=== PATIENT | female | born 1995 | race American Indian/Alaskan Native ===

== ENCOUNTER 2017-02-28 22:35 | Emergency (ER) | payer MEDICAID ==
[2017-02-28 22:53] VITALS: BP 109/69
[2017-02-28 23:22] LABS: Basophils % (Auto) 0.2 % (0.0-1.8); Eosinophils % (Auto) 1.7 % (0.0-4.3); Hematocrit 35.4 % (30.3-42.9); Hemoglobin 11.5 gm/dl (10.1-14.3); Mean Corpuscular HGB Conc 33 % (30-34); Mean Corpuscular Hemoglobin 27 pg (28-32); Mean Corpuscular Volume 81 fl (79-97); Platelet Count 202 K/mm3 (140-440); Red Blood Count 4.35 M/mm3 (3.65-5.03); Red Cell Distribution Width 15.1 % (13.2-15.2)
[2017-02-28 23:41] LABS: Anion Gap 19 mmol/L; BUN/Creatinine Ratio 14; Blood Urea Nitrogen 7 mg/dL (7-17); Calcium 8.9 mg/dL (8.4-10.2); Carbon Dioxide 21 mmol/L (22-30); Chloride 99.7 mmol/L (98-107); Glucose 96 mg/dL (65-100); Potassium 3.8 mmol/L (3.6-5.0); Sodium 136 mmol/L (137-145)
[2017-03-01 03:59] LABS: Bilirubin,Urine NEG (Negative); Blood,Urine NEG (Negative); Ketones,Urine 20 mg/dL (Negative); Leukocyte Esterase,Urine NEG (Negative); Mucus,Urine 2+ /HPF; Nitrite,Urine NEG (Negative); Protein,Urine <15 mg/dL mg/dL (Negative); Urobilinogen,Urine < 2.0 mg/dL (<2.0)
== END 2017-03-01 05:15 | disposition left against medical advice (07) ==
LOC: ED 22:35
DX: R51 Headache (principal); Z53.21 Procedure and treatment not carried out due to patient leaving prior to being seen by health care provider
CPT/HCPCS: 36415; 80048; 81001; 85025

== ENCOUNTER 2017-08-11 05:12 | Inpatient (IN) | payer MEDICAID ==
[2017-08-11] MEDS ORDERED: LACTATED RINGERS 2,000 ML ONE (05:18)
[2017-08-11] MEDS: LACTATED RINGERS 1,000 ML IV SCH ×3 (05:35→06:56)
[2017-08-11] MEDS ORDERED: PEPCID IV ONE (05:47)
[2017-08-11] MEDS ORDERED: BICITRA PO ONE (05:47)
[2017-08-11] MEDS ORDERED: REGLAN IV ONE (05:47)
[2017-08-11] MEDS ORDERED: PITOCin/NS 20 UNIT/1000ML DRIP 20 UNITS/1,000 ML BAG IV SCH ×2 (06:00→11:00)
[2017-08-11] MEDS ORDERED: ANCEF/STERILE WATER 2 GM/20 ML 2 GM/20 ML SYRINGE IV NR (06:00)
[2017-08-11 06:29] LABS: Basophils % (Auto) 0.4 % (0.0-1.8); Eosinophils # (Auto) 0.3 K/mm3 (0.0-0.4); Eosinophils % (Auto) 2.5 % (0.0-4.3); Hematocrit 35.3 % (30.3-42.9); Hemoglobin 11.8 gm/dl (10.1-14.3); Lymphocytes # (Auto) 2.7 K/mm3 (1.2-5.4); Lymphocytes % (Auto) 23.3 % (13.4-35.0); Mean Corpuscular HGB Conc 34 % (30-34); Mean Corpuscular Hemoglobin 27 pg (28-32); Mean Corpuscular Volume 80 fl (79-97); Monocytes % (Auto) 8.9 % (0.0-7.3); Red Cell Distribution Width 15.5 % (13.2-15.2)
[2017-08-11 06:45] LABS: Platelet Count 199 K/mm3 (140-440)
[2017-08-11] MEDS ORDERED: EMLA TP PRN (07:13)
--- NOTE | 2017-08-11 07:13 | History and Physical Report ---
History of Present Illness Date of examination: 08/11/17 Date of admission: 08/11/17 05:12 Chief complaint: Third repeat History of present illness: 21-year-old at 39 weeks presents with a third repeat and tubal ligation, she is a [facility] patient. course has been unremarkable. Past History Past Medical History: no pertinent history Past Surgical History: section (x 2) [employer] History: denies: chlamydia, gonorrhea, hepatitis B, hepatitis C, herpes, HIV , syphilis Social history: single, full code. denies: smoking, alcohol abuse, prescription drug abuse, IV drug use - Obstetrical History Expected Date of Delivery: 08/18/17 Actual Gestation: 39 Week(s) 0 Day(s) : 3 Para: 2 Medications and Allergies Allergies Allergy/AdvReac Type Severity Reaction Status Date / Time No Known Allergies Allergy Verified 03/06/13 11:21 Home Medications Medication Instructions Recorded Confirmed Last Taken Type Pnv No.95/Ferrous Fum/Folic AC 1 tab PO QDAY 08/11/17 08/11/17 2 Weeks Ago History [ Vitamins Tablet] ~07/28/17 Active Meds: Active Medications Cefazolin Sodium (Ancef/Sterile Water 2 Gm/20 Ml) 2 gm in 20 mls @ 80 mls/hr IV PREOP NR; Protocol Stop: 08/12/17 05:59 Lactated Ringer's (Lactated Ringers) 1,000 mls @ 2,250 mls/hr IV PREOP TRISHA Stop: 08/12/17 06:27 Last Admin: 08/11/17 06:56 Dose: 999 mls/hr Oxytocin/Sodium Chloride (Pitocin/Ns 20 Unit/1000ml Drip) 20 units in 1,000 mls @ 0 mls/hr IV TITR TRISHA Review of Systems Constitutional: no fever, no chills, no weakness, no chronic headaches Eyes: no diplopia Cardiovascular: no chest pain, no orthopnea, no palpitations, no lightheadedness , no shortness of breath, no dyspnea on exertion, no high blood pressure Respiratory: no cough, no cough with sputum, no shortness of breath, no dyspnea on exertion, no congestion Gastrointestinal: no abdominal pain, no nausea, no vomiting Genitourinary: no vaginal bleeding, no leakage of fluid, no contractions - Vital Signs Vital signs: Vital Signs Temp Resp 98.5 F 20 08/11/17 05:49 08/11/17 05:49 Temp Pulse Resp BP Pulse Ox 98.5 F 89 20 104/62 99 08/11/17 05:49 08/11/17 05:59 08/11/17 05:49 08/11/17 05:54 08/11/17 05:59 - Physical Exam Cardiovascular: Regular rate, Normal S1, Normal S2 Lungs: Positive: Clear to auscultation, Normal air movement Abdomen: Positive: normal appearance, soft. Negative: tenderness, guarding, rigidity Genitourinary (Female): Positive: normal external genitalia Uterus: Positive: enlarged (EFW ~ 3700) Adnexa: both: normal Extremities: Positive: normal Results Result Diagrams: 08/11/17 05:30 Abnormal lab results 08/11/17 Range/Units 05:30 WBC 11.6 H (4.5-11.0) K/mm3 MCH 27 L (28-32) pg RDW 15.5 H (13.2-15.2) % [place] % (Auto) 8.9 H (0.0-7.3) % [place] # 1.0 H (0.0-0.8) K/mm3 All other labs normal. Assessment and Plan A: 21-year-old at 39 weeks presents both for repeat and tubal ligation -cat 1 tracing P: -Obtain routine labs -She has been consented -Proceed to the OR once available - Patient Problems (1) 39 weeks gestation of Current Visit: Yes Status: Acute (2) History of 2 sections Current Visit: Yes Status: Acute
[2017-08-11] MEDS ORDERED: DILAUDID IV PRN (07:30)
[2017-08-11] MEDS ORDERED: PHENERGAN PO PRN (07:30)
[2017-08-11] MEDS ORDERED: BENADRYL IV PRN (07:30)
[2017-08-11] MEDS ORDERED: ZOFRAN IV PRN (07:30)
[2017-08-11] MEDS ORDERED: NARCAN 0.4 MG/1 ML IV PRN ×2 (07:30→10:23)
[2017-08-11] MEDS ORDERED: PHENERGAN PR PRN (07:30)
--- NOTE | 2017-08-11 07:30 | Anesthesia Day of Surgery ---
Anesthesia Day of Surgery - Day of Surgery Patient Examined: Yes Patient H&P Reviewed: Yes Patient is NPO: Yes
--- NOTE | 2017-08-11 07:30 | Anesthesia Consultation ---
Anesthesia Consult and Med Hx Date of service: 08/11/17 - Airway Anesthetic Teeth Evaluation: Good ROM Head & Neck: Adequate Mental/Hyoid Distance: Adequate Mallampati Class: Class II Intubation Access Assessment: Probably Good - Pre-Operative Health Status ASA Pre-Surgery Classification: ASA2 Proposed Anesthetic Plan: Epidural, Spinal - Pulmonary Hx Asthma: Yes (as ) COPD: No Hx Pneumonia: No - Cardiovascular System Hx Hypertension: No Hx Heart Attack/AMI: No Hx Valvular Heart Disease: No - Central Nervous System Hx Seizures: No CVA: No Hx Psychiatric Problems: No - Endocrine Hx Renal Disease: No Hx End Stage Renal Disease: No Hx Liver Disease: No Hx Hypothyroidism: No Hx Hyperthyroidism: No - Hematic Hx Anemia: No Hx Sickle Cell Disease: No - Other Systems Hx Alcohol Use: No Hx Substance Use: No Hx Cancer: No
[2017-08-11] MEDS ORDERED: TORADOL IV PRN (07:31)
[2017-08-11] MEDS ORDERED: SODIUM CHLORIDE FLUSH SYRINGE 10 ML IV NR ×2 (08:00→11:00)
[2017-08-11] MEDS ORDERED: NACL 0.9% IR ONE (09:05)
[2017-08-11] MEDS ORDERED: WATER FOR IRRIG STERILE IR ONE (09:05)
[2017-08-11] MEDS ORDERED: NEO SYNEPHRINE/NS Syringe(OR USE) IV ONE (09:15)
[2017-08-11] MEDS ORDERED: XYLOCAINE MPF 2% ONE ×2 (09:57)
[2017-08-11] MEDS ORDERED: MORPHINE ONE (09:57)
[2017-08-11] MEDS ORDERED: NACL 0.9% 1000 ML 1,000 ML ONE (10:04)
[2017-08-11] MEDS ORDERED: ANUCORT-HC PR PRN (10:23)
[2017-08-11] MEDS ORDERED: LANSINOH TP PRN (10:23)
[2017-08-11] MEDS ORDERED: TUCKS PAD TP PRN (10:23)
[2017-08-11] MEDS ORDERED: MYLICON PO PRN (10:23)
[2017-08-11] MEDS ORDERED: SENOKOT PO PRN (10:23)
[2017-08-11] MEDS ORDERED: TYLENOL PO PRN (10:23)
--- NOTE | 2017-08-11 10:23 | Operative Report ---
Operative Report Operative Report: DATE: 08/11/2017 PREOPERATIVE DIAGNOSIS: 21-year-old at 39 weeks, 2 prior C-sections desires repeat, desires permanent sterilization POSTOP DIAGNOSIS: As above + Dense adhesions NAME OF PROCEDURE: Repeat low transverse section Bilateral tubal ligation with Filshie clips Adhesiolysis SURGEON: REBECCA CHEN MD RF DESIGN ENGINEER: Paulina ANESTHESIA: Combined spinal epidural EBL: 800 mL PATHOLOGY SPECIMEN: None URINE OUTPUT: 100 mL BRIEF NOTE: [] FINDINGS: Male in cephalic presentation, time of was 9:29 AM, infant weight was 7 lbs. 13 oz. or 3544 g, Apgars were 8 and 9, dense adhesions noted, otherwise normal uterus tubes and ovaries DESCRIPTION OF PROCEDURE: She was taken to the operating room where she was prepped and draped in a sterile fashion, she was placed in the dorsal supine position. Pfannenstiel incision was performed through her prior incisional scar which was carried through to underlying rectus fascia which was scored in the midline. The fascial incision was extended laterally with use of Wasserman scissors, the anterior leaf was then grasped with Kochers forceps elevated dissected sharply and bluntly off the underlying rectus in a similar fashion inferior leaf was grasped elevated dissected sharply and bluntly off the underlying rectus. The rectus was in the midline, dense adhesions noted. Adhesiolysis was performed in the usual manner carefully until good visualization of bladder was noted. A bladder blade was placed in the patient' s pelvic cavity; bladder flap could not be created. A hysterotomy incision was then performed in the lower segment with clear amniotic fluid noted, hysterotomy incision was extended laterally with the use of fingers manually. in cephalic presentation was delivered in the usual manner; cord was clamped and cut was handed over to waiting nursery staff. The placenta was then delivered manually intact, the uterus was exteriorized cleared of all clots and debris. Hysterotomy incision was then closed in a running locked fashion with 0 Vicryl on a CTX; using the same suture was imbricate the initial layer. Interrupted [id number] stitches were used to obtain hemostasis. Attention was then turned to the fallopian tubes on both sides which were clipped with Filshie clips 2 on each tube until blanching noted. Uterus was then returned to the patient's pelvic cavity; peritoneal edges were grasped with hemostats and Violette's elevated copious irrigation was used to clear the gutters of all clots and debris. Tercel hemostatic agent was then applied to the hysterotomy incision as a means to prevent future bleeding. The peritoneal layer was then closed in a running fashion with 3-0 Vicryl and the rectus was reapproximated with a single [id number] stitch. The fascia was closed in a running fashion with 0 Vicryl and tied in the opposite side. The subcutaneous layer was irrigated and then reapproximated with interrupted figure -of-eight stitches. The skin was closed in a subcuticular manner with 4-0 Vicryl. She tolerated the procedure well lap and instrument counts were correct 2 she did receive 2 g of Ancef prior to incision she is transferred to PACU in stable condition thank you.
[2017-08-11] MEDS: D5LR 1,000 ML IV SCH ×2 (15:38→22:03)
[2017-08-11 23:02] LABS: Hemoglobin 10.9 gm/dl (10.1-14.3)
[2017-08-12] MEDS ORDERED: FEOSOL PO SCH (10:00)
[2017-08-12] MEDS ORDERED: PRENATAL VITAMIN PO SCH (10:00)
[2017-08-12] MEDS: PERCOCET 5/325 PO PRN ×2 (12:09→19:05)
--- NOTE | 2017-08-12 13:35 | Progress Note ---
Assessment and Plan - Patient Problems (1) S/P repeat low transverse Current Visit: Yes Status: Acute Plan to address problem: POD 2 - stable Continue routine postop orders Encouraged increased ambulation Anticipate discharge 08/13/17 (2) Status post tubal ligation at time of delivery, current hospitalization Current Visit: Yes Status: Acute Subjective - Subjective Date of service: 08/12/17 Principal diagnosis: s/p Repeat LTCS with BTL Patient reports: appetite normal, voiding normally, pain well controlled, ambulating normally, no flatus, no bowel movement : doing well, transported (nursing with some difficulties), bottle feeding Objective - Vital Signs Latest vital signs: Vital Signs Temp Pulse Resp BP Pulse Ox 08/12/17 12:09 20 08/12/17 12:00 98.2 F 96 H 20 118/66 100 08/12/17 04:35 98.2 F 89 20 98/62 08/12/17 00:10 98.8 F 80 20 112/65 08/11/17 20:00 99.0 F 79 22 111/64 08/11/17 16:30 98.7 F 100 H 18 112/67 Intake and Output 08/11/17 08/12/17 08/12/17 23:59 07:59 15:59 Intake Total 1282.083 240 Output Total 600 1000 Balance 682.083 -760 Intake: IV 802.083 D5lr 1,000 ml @ 125 mls/ 802.083 hr IV DIRECT TRISHA Rx#: [id number] Oral 480 240 Output: Urine 600 1000 Indwelling Catheter 600 Void 1000 Other: Total, Intake Amount 480 240 Total, Output Amount 600 600 - Exam Cardiovascular: Present: Regular rate, Normal S1, Normal S2, No murmurs Lungs: Present: Clear to auscultation, Normal air movement Abdomen: Present: normal appearance, soft Vulva: both: normal Uterus: Present: normal, firm, fundal height below umbilicus Extremities: Present: normal Deep Tendon Reflex Grade: Normal +2 Incision: Present: normal, dry, dressed
[2017-08-12] MEDS: MILK OF MAGNESIA PO PRN (19:06)
[2017-08-12] MEDS: MOTRIN PO PRN (23:16)
--- NOTE | 2017-08-13 09:47 | Progress Note ---
Assessment and Plan A: PPD #2 - abd distention P; Ducolax suppository this am Baby under bili lights Reassess abd distention in am. Subjective - Subjective Principal diagnosis: s/p Repeat LTCS with BTL Patient reports: appetite normal (but not passing gas) : doing well (but is beginning photo therapy) Objective - Vital Signs Latest vital signs: Vital Signs Temp Pulse Resp BP Pulse Ox 08/13/17 08:40 98.1 F 84 18 113/69 08/13/17 00:00 98.0 F 88 18 117/68 08/12/17 17:00 98.2 F 91 H 20 116/69 08/12/17 12:09 20 08/12/17 12:00 98.2 F 96 H 20 118/66 100 Intake and Output 08/12/17 08/13/17 08/13/17 22:59 06:59 14:59 Intake Total 120 240 360 Output Total 600 Balance -480 240 360 Intake: Oral 120 240 360 Output: Urine 600 Void 600 Other: Total, Intake Amount 120 240 360 Total, Output Amount 600 # Voids Void 1 1 1 - Exam Breasts: Present: deferred Cardiovascular: Present: Regular rate Lungs: Present: Clear to auscultation Abdomen: Present: distention Vulva: both: normal Uterus: Present: fundal height below umbilicus Extremities: Present: normal Deep Tendon Reflex Grade: Normal +2 Incision: Present: dressed
[2017-08-13] MEDS ORDERED: DULCOLAX PR PRN (09:48)
[2017-08-13] MEDS: MILK OF MAGNESIA PO PRN (10:40)
[2017-08-13] MEDS: PERCOCET 5/325 PO PRN ×2 (10:54→17:34)
[2017-08-13] MEDS: MOTRIN PO PRN (17:34)
[2017-08-14] MEDS: MOTRIN PO PRN ×2 (00:53→12:48)
[2017-08-14] MEDS: PERCOCET 5/325 PO PRN (04:01)
--- NOTE | 2017-08-14 09:47 | Progress Note ---
Assessment and Plan - Patient Problems (1) S/P repeat low transverse Current Visit: Yes Status: Acute Plan to address problem: POD 3 - stable Discharge to home today F/U at [facility] in 2 weeks for incision check (2) Status post tubal ligation at time of delivery, current hospitalization Current Visit: Yes Status: Acute Subjective - Subjective Date of service: 08/14/17 Principal diagnosis: s/p Repeat LTCS with BTL Patient reports: appetite normal, voiding normally, pain well controlled, flatus , bowel movement, ambulating normally [place]: doing well, nursing well, bottle feeding Objective - Vital Signs Latest vital signs: Vital Signs Temp Pulse Resp BP BP 08/14/17 00:42 98.0 F 84 20 109/68 08/13/17 17:34 20 08/13/17 16:05 98.1 F 86 18 118/60 08/13/17 10:54 20 Intake and Output 08/13/17 08/14/17 08/14/17 23:59 07:59 15:59 Intake Total 600 Balance 600 Intake: Oral 240 Intake, Free Water 360 Other: Total, Intake Amount 240 # Voids Void 1 - Exam Cardiovascular: Present: Regular rate, Normal S1, Normal S2, No murmurs Lungs: Present: Clear to auscultation, Normal air movement Abdomen: Present: normal appearance, soft, normal bowel sounds. Absent: distention, tenderness Vulva: both: normal Uterus: Present: normal, firm, fundal height below umbilicus Extremities: Present: normal Deep Tendon Reflex Grade: Normal +2 Incision: Present: normal, dry, intact
--- NOTE | 2017-08-14 09:47 | Discharge Summary ---
Providers - Providers Date of Admission: 08/11/17 05:12 Date of discharge: 08/14/17 Attending physician: CARMEN DELGADO MD Primary care physician: CARMEN DELGADO MD Hospitalization Reason for admission: section, IUP at term Delivery: Procedure: repeat low transverse Episiotomy: none Laceration: none Incision: normal, dry, intact Other procedures: tubal ligation complications: none Discharge diagnosis: IUP at term delivered baby: male Hospital course: Uncomplicated Condition at discharge: Stable Disposition: DC-01 TO HOME OR SELFCARE - Discharge Diagnoses (1) S/P repeat low transverse Status: Acute (2) Status post tubal ligation at time of delivery, current hospitalization Status: Acute Plan - Discharge Medications Prescriptions: Ibuprofen [Motrin 600 MG tab] 600 mg PO Q8H PRN #30 tablet PRN Reason: Pain Multivitamin with Iron [Multivitamins with Iron] 1 each PO DAILY #30 tablet oxyCODONE /ACETAMINOPHEN [Percocet 5/325] 1 tab PO Q6HR PRN #30 tablet PRN Reason: Pain - Provider Discharge Summary Activity: routine, no sex for 6 weeks, no heavy lifting 4 weeks, no strenuous exercise Diet: routine Instructions: routine Additional instructions: [] Smoking cessation referral if applicable(refer to patient education folder for contact #) [] Refer to [facility] Booklet Call your doctor immediately for: * Fever > 100.5 * Heavy vaginal bleeding ( >1 pad per hour) * Severe persistent headache * Shortness of breath * Reddened, hot, painful area to leg or breast * Drainage or odor from incision. * Keep incision clean and dry at all times and follow doctor's instructions regarding bathing/showering - Follow up plan Follow up: CARMEN DELGADO MD [Primary Care Provider] - 14 Days (Call [facility] to schedule an appointment in 2 weeks for incision check) Forms: [facility] Discharge Summary
[2017-08-14 17:11] VITALS: BP 122/77
== END 2017-08-14 19:15 | disposition home or self-care (01) | DRG 766 ==
LOC: APU 05:12 → OB 16:31
PROVIDERS: ADMIT Obstetrics & Gynecology; ATTEND Obstetrics & Gynecology
PROC: 10D00Z1 Extraction of Products of Conception, Low, Open Approach (ICD-10-PCS; principal; 2017-08-11)
PROC: 0UL70CZ Occlusion of Bilateral Fallopian Tubes with Extraluminal Device, Open Approach (ICD-10-PCS; 2017-08-11)
PROC: 0DNW0ZZ Release Peritoneum, Open Approach (ICD-10-PCS; 2017-08-11)
DX: O34.211 Maternal care for low transverse scar from previous cesarean delivery (principal); Z37.0 Single live birth; Z3A.39 39 weeks gestation of pregnancy; Z30.2 Encounter for sterilization; O99.62 Diseases of the digestive system complicating childbirth; K66.0 Peritoneal adhesions (postprocedural) (postinfection)
CPT/HCPCS: 36415; 85014; 85018; 85025; 86592; 86850; 86900; 86901; 99211; C9250; G0463; J0690; J1170; J1200; J1885; J2270; J2370; J2590; J2765; J7030; J7120; J7121